=== PATIENT | female | born 1995 | race Two or more races ===

== ENCOUNTER 2017-09-27 02:14 | Emergency (ER) | payer OTHER ==
[2017-09-27 02:43] LABS: APPEARANCE,URINE CLEAR; BILIRUBIN,URINE NEGATIVE (NEGATIVE); GLUCOSE, URINE NEGATIVE (NEGATIVE); KETONES,URINE NEGATIVE (NEGATIVE); LEUKOCYTE ESTERASE,URINE NEGATIVE (NEGATIVE); NITRITE,URINE NEGATIVE (NEGATIVE); PROTEIN,URINE NEGATIVE (NEGATIVE); URINE SPECIFIC GRAVITY 1.001; UROBILINOGEN,URINE NEGATIVE mg/dL (<2.0)
[2017-09-27 02:54] LABS: ABSOLUTE BASOPHILS # (AUTO) 0.1 10^3/uL (0.0-0.2); ABSOLUTE EOSINOPHILS # (AUTO) 0.2 10^3/uL (0.0-0.6); ABSOLUTE LYMPHOCYTES (AUTO) 2.9 10^3/uL (0.5-4.7); ABSOLUTE MONOCYTES (AUTO) 0.4 10^3/uL (0.1-1.4); ABSOLUTE NEUT (AUTO) 4.5 10^3/uL (1.7-8.2); BASOPHILS % (AUTO) 0.8 % (0-2); EOSINOPHILS % (AUTO) 2.4 % (0-6); HEMATOCRIT 40.9 % (36.0-47.0); HGB HCT DIFFERENCE 1.1; LYMPHOCYTES % (AUTO) 35.9 % (13-45); MEAN CORPUSCULAR HGB CONC 34.2 g/dL (32.0-36.0); MEAN CORPUSCULAR VOLUME 91 fl (80-97); MONOCYTES % (AUTO) 5.4 % (3-13); RED BLOOD COUNT 4.51 10^6/uL (3.72-5.28); RED CELL DISTRIBUTION WIDTH 13.2 % (11.5-14.0); SEGMENTED NEUTROPHILS % (AUTO) 55.5 % (42-78); WHITE BLOOD COUNT 8.2 10^3/uL (4.0-10.5)
[2017-09-27 03:04] LABS: URINE BARBITURATES SCREEN NEGATIVE; URINE METHADONE SCREEN NEGATIVE; URINE OPIATES LOW NEGATIVE; URINE PHENCYCLIDINE SCREEN NEGATIVE
--- NOTE | 2017-09-27 03:10 | ER Document Report ---
ED General <ANTONYTRAY - Last Filed: 09/27/17 10:41> <SAMIRA NOGUEIRA - Last Filed: 09/27/17 10:51> <HILLARY DEAN - Last Filed: 09/28/17 03:35> - General Chief Complaint: Psych Problem Stated Complaint: SUICIDAL IDEATION Time Seen by Provider: 09/27/17 02:18 Notes: Patient is a 22-year-old female presents with complaint of thoughts of suicide. Patient says that ever since she got out of the on September 08 she has been very depressed. She says she has had a hard time adjusting. She is having a hard time getting a new job. Staying with a friend got in argument with a friend. She began drinking tonight and then thought about hurting herself. She has tried herself in the past. She denies actually doing anything to herself tonight. She says she does start to feel some better now that she is starting to sober up. She is supposed to be on medications for depression but says she has not been taking them. She has no other complaints at this time. (HILLARY DEAN) - Related Data Home Medications: Current Home Medications Sertraline HCl [Zoloft] 100 mg PO DAILY 09/27/17 [History] Trazodone HCl 100 mg PO QHS 09/27/17 [History] Past Medical History - Social History Smoking Status: Unknown if Ever Smoked Family History: Reviewed & Not Pertinent <ANTONYTRAY - Last Filed: 09/27/17 10:41> - Social History Smoking Status: Unknown if Ever Smoked Frequency of alcohol use: Occasional Drug Abuse: None Family History: Reviewed & Not Pertinent <HILLARY DEAN - Last Filed: 09/28/17 03:35> Review of Systems <TRAY ANTONY - Last Filed: 09/27/17 10:41> <SAMIRA NOGUEIRA - Last Filed: 09/27/17 10:51> <HILLARY DEAN - Last Filed: 09/28/17 03:35> - Review of Systems Notes: My Normal Review Basic REVIEW OF SYSTEMS: CONSTITUTIONAL : Denies fever, chills, or sweats. Denies recent illness. RESPIRATORY: Denies cough, cold, or chest congestion. Denies shortness of breath, difficulty breathing, or wheezing. GASTROINTESTINAL: Denies abdominal pain. Denies nausea, vomiting, or diarrhea. Denies constipation. Last BM: GENITOURINARY: Denies difficulty urinating, painful urination, burning, frequency, or blood in urine. MUSCULOSKELETAL: Denies neck or back pain or joint pain or swelling. SKIN: Denies rash or skin lesions. NEUROLOGICAL: Denies altered mental status or loss of consciousness. Denies headache. Denies weakness or paralysis or loss of use of either side. Denies problems with gait or speech. Denies sensory or motor loss. PSYCHIATRIC: Depression and suicidal thoughts. ALL OTHER SYSTEMS REVIEWED AND NEGATIVE. (HILLARY DEAN) Physical Exam <TRAY ANTONY - Last Filed: 09/27/17 10:41> <SAMIRA NOGUEIRA - Last Filed: 09/27/17 10:51> <HILLARY DEAN - Last Filed: 09/28/17 03:35> - Vital signs Vitals: Temp Pulse Resp BP Pulse Ox 97.9 F 89 18 105/65 97 09/27/17 02:30 09/27/17 02:30 09/27/17 02:30 09/27/17 02:30 09/27/17 02:30 - Notes Notes: General Appearance: Well nourished, alert, cooperative, no acute distress, no obvious discomfort. Vitals: reviewed, See vital signs table. Eyes: PERRL, EOMI, Conjuctiva clear Mouth: No decreasd moisture Lungs: No wheezing, No rales, No rhonci, No accessory muscle use, good air exchange bilaterally. Heart: Normal rate, Regular rythm, No murmur, no rub Abdomen: Normal BS, soft, No rigidity, No abdominal tenderness, No guarding, no rebound, no abdominal masses, no organomegaly Extremities: strength 5/5 in all extremities, good pulses in all extremities, no swelling or tenderness in the extremities, no edema. Skin: warm, dry, appropriate color, no rash Neuro: speech clear, oriented x 3, normal affect, responds appropriately to questions. (HILLARY DEAN) Course - Laboratory Result Diagrams: 09/27/17 02:42 09/27/17 02:42 <TRAY ANTONY - Last Filed: 09/27/17 10:41> - Laboratory Result Diagrams: 09/27/17 02:42 09/27/17 02:42 <SAMIRA NOGUEIRA - Last Filed: 09/27/17 10:51> - Laboratory Result Diagrams: 09/27/17 02:42 09/27/17 02:42 <HILLARY DEAN - Last Filed: 09/28/17 03:35> - Re-evaluation Re-evalutation: 09/27/17 05:15 Patient is medically stable for psychiatric evaluation due to her earlier thoughts of suicide. Patient currently says she is no longer suicidal but is still willing to speak with psychiatry. (HILLARY DEAN) - Vital Signs Vital signs: Temp Pulse Resp BP Pulse Ox 98.4 F 75 18 103/63 99 09/27/17 10:57 09/27/17 10:57 09/27/17 10:57 09/27/17 10:57 09/27/17 10:57 - Laboratory Laboratory results interpreted by me: 09/27/17 02:42 Sodium 150.3 H Chloride 111 H Salicylates < 1.0 L Acetaminophen < 10 L - EKG Interpretation by Me Additional EKG results interpreted by me: 09/27/17 03:10 EKG is reviewed and interpreted by me. EKG shows normal sinus rhythm with rate of [address] segment elevation or depression. No ischemic T-wave inversions. AL interval, QRS duration, QTc intervals are within normal range. No old EKG available for comparison. (HILLARY DEAN) Discharge <TRAY ANTONY - Last Filed: 09/27/17 10:41> <SAMIRA NOGUEIRA - Last Filed: 09/27/17 10:51> <HILLARY DEAN - Last Filed: 09/28/17 03:35> - Discharge Clinical Impression: Passive suicidal ideations Alcohol intoxication Qualifiers: Complication of substance-induced condition: uncomplicated Qualified Code(s): F10.920 - Alcohol use, unspecified with intoxication, uncomplicated Condition: Stable Disposition: HOME, SELF-CARE Additional Instructions: DEPRESSION: Your evaluation reveals that you have mental depression. While symptoms may be vague, they often include disturbance of sleep, fatigue, loss of appetite , and general loss of interest in life. While depression may be a side effect of drugs, or a reaction to a major change in your life, many cases have no known cause. If depression is acute, and related to a major loss in your life, you can expect it to clear completely with time. If you have been depressed a long time , are prone to repeated bouts of depression or low mood, or have been thinking of suicide, get help. Depression can be treated with anti-depressant medication and counselling. Long-term depression will often take a few weeks to clear, even with appropriate medication. Follow-up care is important. SUICIDAL IDEATION: Suicidal ideation is a common medical term for thoughts about suicide, which may be as detailed as a formulated plan, without the suicidal act itself. Although most people who undergo suicidal ideation do not commit suicide, some go on to make suicide attempts. The range of suicidal ideation varies greatly from fleeting to detailed planning, role playing, and unsuccessful attempts. While thoughts about suicide are common, most people do not carry out serious actions to commit suicide. Based upon your evaluation and discussion with you, we do not believe you are currently at risk to act upon your thoughts of suicide. You have agreed to return to the Emergency Department, at any time , if you feel inclined to act upon your suicidal thoughts. ACUTE ALCOHOL INTOXICATION and ALCOHOL ABUSE: Your evaluation revealed very high levels of alcohol. You can from drinking a large amount of alcohol rapidly! Further, there's the risk of falls , traffic accidents, and fights. A high portion (about 50 percent) of the serious injuries seen in hospital emergency rooms are caused by alcohol. Alcohol overdosage is usually due to an underlying emotional or psychiatric problem. You may benefit from counselling. If "binge" drinking is an ongoing problem for you, or if you drink ANY AMOUNT of alcohol EVERY day, you most likely have a tendency to alcoholism. You should avoid alcohol totally. We can refer you for treatment. Persons with alcohol problems are often also prone to other addictions -- you should discuss any use of medications or drugs with the doctor. You should be watched at home for the next several hours by someone who has not been drinking. Get extra fluids for the next 24 hours. Call the doctor if there is repeated vomiting, increasing headache, decreasing level of alertness, or any other worsening. FOLLOW-UP CARE: These follow-up with your outpatient mental health provider, the [facility], at your regular scheduled appointment on Friday. If you experience worsening or a significant change in your symptoms, notify the physician immediately or return to the Emergency Department at any time for re-evaluation. Referrals: [facility] [Provider Group] - 09/30/17
[2017-09-27 03:14] LABS: ALANINE AMINOTRANSFERASE 26 U/L (9-52); ALBUMIN 4.4 g/dL (3.5-5.0); ALCOHOL 233 mg/dL (NONE DETECTED); ALKALINE PHOSPHATASE 59 U/L (38-126); ANION GAP 16 (5-19); ASPARTATE AMINO TRANSFERASE 19 U/L (14-36); BILIRUBIN,DIRECT 0.4 mg/dL (0.0-0.4); BILIRUBIN,TOTAL 0.5 mg/dL (0.2-1.3); BLOOD UREA NITROGEN 12 mg/dL (7-20); CALCIUM 9.1 mg/dL (8.4-10.2); CARBON DIOXIDE 23 mmol/L (22-30); CHLORIDE 111 mmol/L (98-107); CREATINE KINASE 127 U/L (30-135); GLUCOSE 82 mg/dL (75-110); POTASSIUM 3.8 mmol/L (3.6-5.0); SODIUM 150.3 mmol/L (137-145); TOTAL PROTEIN 7.3 g/dL (6.3-8.2)
--- NOTE | 2017-09-27 10:10 | ER Document Report ---
Doctor's Note Notes: 09/27/17 10:09 Rounds: Chart reviewed and patient interviewed. Patient is being evaluated for suicidal thoughts last night. She says that she no longer has those thoughts today. She acknowledges drinking heavily yesterday. Her blood alcohol on admission was 233. Only other significant labs were her sodium and chloride were slightly elevated. Will encourage fluid intake. Vital signs are all normal. Patient appears to be medically stable for transfer or discharge. Octavio Matute MD
--- NOTE | 2017-09-27 10:36 | PSYCHOLOGICAL NOTE ---
Psych Note - Psych Note Psych Note: Patient is medically stable for psychiatric evaluation due to her earlier thoughts of suicide. Patient currently says she is no longer suicidal but is still willing to speak with psychiatry. Patient disclosed that she is feeling better but hung over. She continued to state that she no longer has thoughts of suicide. Patient states it has been a long time since she had thoughts of suicide while under the influence but is not the first time. 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 [facility]; patient was unable to attend her first 2 appointments. Patient disclosed that she had to go to work the first time she had an appointment the second time she had no ride. Patient continued disclosed that she felt is more important to go to work to make sure she still was able to have a roof of her head. Patient disclosed she knows she needs to go back to therapy because "it really worked when I was active-duty." Patient continued disclosed she weaned herself off of her antidepressants in July because she did not want to have to be reliant on medication. When asked on how often the patient drinks she states "only 1 or 2 times every few weeks." Patient's friend, Erika, disclosed that she was part of the team to assist the patient when she was active-duty. 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 She agrees to ensure the patient has no access to weapons or medications. Patient is alert and orientated to person, place, time and circumstance. Mood is euthymic with congruent affect. Patient denies suicidal and homicidal ideation. Patient denies auditory visual hallucinations. Delusions are absent and behaviors congruent with intact reality based presentation i.e. organized, linear, rational thinking. Eye contact was well-maintained. Conversational speech was within normal rate, tone and prosody. Intellectual abilities appear to be within the average range. Attention and concentration were good. Insight , judgment, impulse control are currently fair. 303.00 (F10.129) alcohol intoxication with use disorder; mild 309.9 (F43.8) adjustment disorder unspecified Impression\\plan: Patient is considered psychiatrically clear. Patient does not meet IVC criteria per [place] GS 122C. Patient denies suicidal and homicidal ideation reporting that she was under the influence. Patient has had this experience before while under the influence. Patient denies alcohol abuse stating that she only drinks 1 or 2 times every few weeks. Patient's toxicology indicates blood alcohol level of over 200. Patient is noncompliant as evidenced by missing first 2 appointments with the [facility] in weaning herself off of her psychiatric medications. Patient's friend Erika disclose she will be part of patient's discharge plan to ensure the patient does not have access to medications or weapons and follows through with her outpatient mental health treatment. Patient is recommended to [facility] at her previous scheduled appointment on Friday. Dr. Clark was consulted and the care and management of this patient; attending physician in agreement with augmentations and disposition.
[2017-09-27 11:05] VITALS: BP 103/63
--- NOTE | 2017-09-27 15:46 | EKG REPORT ---
SEVERITY:- NORMAL ECG - SINUS RHYTHM : Confirmed by: Isabel Vick 27-Sep-2017 15:45:44
== END 2017-09-27 11:05 | disposition home or self-care (01) ==
LOC: ER 02:14
DX: R45.851 Suicidal ideations (principal); F10.920 Alcohol use, unspecified with intoxication, uncomplicated; F32.9 Major depressive disorder, single episode, unspecified; Z79.899 Other long term (current) drug therapy
CPT/HCPCS: 36415; 80053; 80307; 81001; 82550; 84703; 85025; 93005; 93010; 99285

== ENCOUNTER 2017-12-27 03:32 | Emergency (ER) | payer OTHER ==
[2017-12-27] MEDS ORDERED: HALOPERIDOL LACTATE INJ 5 MG/1 ML VIAL IM ONE (04:28)
[2017-12-27] MEDS ORDERED: LORAZEPAM INJ 2 MG/1 ML VIAL IM ONE (04:28)
--- NOTE | 2017-12-27 04:29 | ER Document Report ---
ED General - General Chief Complaint: Suicidal Ideation Stated Complaint: SUICIDAL IDEATION Time Seen by Provider: 12/27/17 03:53 Notes: Patient is a 20-year-old female presents with complaint of suicidal ideations. She presents saying that she has a history of suicide attempts in the past and has been very depressed recently and has not been taking her depression medications. She says that she wants to commit suicide. She says that she did recently breakup with her boyfriend. She is also been very depressed since leaving the [employer]. She says she also had depression while she was in the [employer]. She has no family in area. TRAVEL OUTSIDE OF THE [place] IN LAST 30 DAYS: No Past Medical History - Social History Smoking Status: Unknown if Ever Smoked Chew tobacco use (# tins/day): No Frequency of alcohol use: Social Drug Abuse: None Family History: Reviewed & Not Pertinent Patient has suicidal ideation: Yes Patient has homicidal ideation: No Renal/ Medical History: Denies: Hx Peritoneal Dialysis Psychiatric Medical History: Reports: Hx Depression Review of Systems - Review of Systems Notes: My Normal Review Basic REVIEW OF SYSTEMS: CONSTITUTIONAL : Denies fever, chills, or sweats. Denies recent illness. EENT: Denies eye, ear, throat, or mouth pain or symptoms. Denies nasal or sinus congestion. CARDIOVASCULAR: Denies chest pain. RESPIRATORY: Denies cough, cold, or chest congestion. Denies shortness of breath, difficulty breathing, or wheezing. GASTROINTESTINAL: Denies abdominal pain. Denies nausea, vomiting, or diarrhea. Denies constipation. Last BM: MUSCULOSKELETAL: Denies neck or back pain or joint pain or swelling. SKIN: Denies rash or skin lesions. NEUROLOGICAL: Denies altered mental status or loss of consciousness. Denies headache. Denies weakness or paralysis or loss of use of either side. Denies problems with gait or speech. Denies sensory or motor loss. PSYCHIATRIC: Severe depression and suicidal ideation ALL OTHER SYSTEMS REVIEWED AND NEGATIVE. Physical Exam - Vital signs Vitals: Temp Pulse Resp BP Pulse Ox 98.3 F 95 20 118/78 100 12/27/17 04:30 12/27/17 04:30 12/27/17 04:30 12/27/17 04:30 12/27/17 04:30 - Notes Notes: General Appearance: Well nourished, alert, cooperative, no acute distress, no obvious discomfort. Vitals: reviewed, See vital signs table. Head: no swelling or tenderness to the head Eyes: PERRL, EOMI, Conjuctiva clear Mouth: No decreasd moisture Lungs: No wheezing, No rales, No rhonci, No accessory muscle use, good air exchange bilaterally. Heart: Normal rate, Regular rythm, No murmur, no rub Abdomen: Normal BS, soft, No rigidity, No abdominal tenderness, No guarding, no rebound, no abdominal masses, no organomegaly Extremities: strength 5/5 in all extremities, good pulses in all extremities, no swelling or tenderness in the extremities, no edema. Skin: warm, dry, appropriate color, no rash Neuro: speech clear, oriented x 3, normal affect, responds appropriately to questions. Psychiatric: Tearful and very upset emotionally. Repeatedly says that she wants to kill herself. Course - Re-evaluation Re-evalutation: 12/27/17 04:28 Patient refused to take off her wet clothes. I informed her that she has to change into the paper scrubs and take off those close. The hospital policy that anybody is here for suicidal ideations must changes these close and take away their personal close as to avoid them using them to hurt themselves. Patient says she does not care and she want to go for close. She asked if I will just let her leave so that she can kill herself. I informed her that I will not let her leave and I will not let her kill herself. Informed her that I am doing this to try to help her. IVC paperwork has been filled out. Patient will be given medication to sedate her so that we can get her changed and get her appropriate treatment. 12/27/17 07:08 She was given sedation medications still continue to fight the security guards. She was therefore restrained. 12/27/17 07:09 Patient's labs are still pending. Once labs are back and normal patient will be medically stable for psychiatric evaluation. - Vital Signs Vital signs: Temp Pulse Resp BP Pulse Ox 98.3 F 95 20 118/78 100 12/27/17 04:30 12/27/17 04:30 12/27/17 04:30 12/27/17 04:30 12/27/17 04:30
--- NOTE | 2017-12-27 09:52 | ER Document Report ---
Doctor's Note Notes: 12/27/17 09:52 Rounds: Chart reviewed and patient sleeping so difficult to interview. Patient is being evaluated for depression and suicidal ideation. She is not on any current medicines for depression, although she has been on medicines in the past. Vital signs are all normal. Lab studies have not been done, even though it has been nearly 6 hours since they were ordered. Patient appears to be medically stable for transfer or discharge. Octavio Matute MD
[2017-12-27 10:34] LABS: ABSOLUTE EOSINOPHILS # (AUTO) 0.3 10^3/uL (0.0-0.6); ABSOLUTE LYMPHOCYTES (AUTO) 2.3 10^3/uL (0.5-4.7); ABSOLUTE MONOCYTES (AUTO) 0.5 10^3/uL (0.1-1.4); BASOPHILS % (AUTO) 0.5 % (0-2); EOSINOPHILS % (AUTO) 3.7 % (0-6); HEMATOCRIT 36.7 % (36.0-47.0); HEMOGLOBIN 12.6 g/dL (12.0-15.5); LYMPHOCYTES % (AUTO) 32.5 % (13-45); MEAN CORPUSCULAR HEMOGLOBIN 30.9 pg (27.0-33.4); MEAN CORPUSCULAR HGB CONC 34.2 g/dL (32.0-36.0); MEAN CORPUSCULAR VOLUME 90 fl (80-97); MONOCYTES % (AUTO) 7.1 % (3-13); PLATELET COUNT 201 10^3/uL (150-450); RED BLOOD COUNT 4.07 10^6/uL (3.72-5.28); RED CELL DISTRIBUTION WIDTH 13.3 % (11.5-14.0); SEGMENTED NEUTROPHILS % (AUTO) 56.2 % (42-78); TOTAL CELLS COUNTED % (AUTO) 100 %; WHITE BLOOD COUNT 7.1 10^3/uL (4.0-10.5)
[2017-12-27 10:41] LABS: APPEARANCE,URINE SLIGHTLY-CLOUDY; BILIRUBIN,URINE NEGATIVE (NEGATIVE); COLOR,URINE YELLOW; GLUCOSE, URINE NEGATIVE (NEGATIVE); KETONES,URINE NEGATIVE (NEGATIVE); LEUKOCYTE ESTERASE,URINE NEGATIVE (NEGATIVE); NITRITE,URINE NEGATIVE (NEGATIVE); PROTEIN,URINE NEGATIVE (NEGATIVE); URINE SPECIFIC GRAVITY 1.006; UROBILINOGEN,URINE NEGATIVE mg/dL (<2.0)
[2017-12-27 10:53] LABS: ALANINE AMINOTRANSFERASE 25 U/L (9-52); ALCOHOL 111 mg/dL (NONE DETECTED); ALKALINE PHOSPHATASE 47 U/L (38-126); ANION GAP 12 (5-19); ASPARTATE AMINO TRANSFERASE 27 U/L (14-36); BILIRUBIN,DIRECT 0.4 mg/dL (0.0-0.4); BILIRUBIN,TOTAL 0.4 mg/dL (0.2-1.3); BLOOD UREA NITROGEN 10 mg/dL (7-20); CALCIUM 8.9 mg/dL (8.4-10.2); CARBON DIOXIDE 23 mmol/L (22-30); CHLORIDE 106 mmol/L (98-107); GLUCOSE 91 mg/dL (75-110); POTASSIUM 3.2 mmol/L (3.6-5.0); SODIUM 141.4 mmol/L (137-145); TOTAL PROTEIN 6.9 g/dL (6.3-8.2)
[2017-12-27 10:54] LABS: ACETAMINOPHEN < 10 ug/mL (10-30); SALICYLATE < 1.0 mg/dL (2.0-20.0)
[2017-12-27 10:59] LABS: URINE AMPHETAMINES SCREEN NEGATIVE; URINE BARBITURATES SCREEN NEGATIVE; URINE BENZODIAZEPINES SCREEN NEGATIVE; URINE COCAINE SCREEN NEGATIVE; URINE MARIJUANA (THC) SCREEN NEGATIVE; URINE METHADONE SCREEN NEGATIVE; URINE PHENCYCLIDINE SCREEN NEGATIVE
[2017-12-27] MEDS: FLUOXETINE HCL 20 MG CAPSULE PO SCH (17:21)
[2017-12-27] MEDS: OLANZAPINE 2.5 MG TABLET PO SCH (17:21)
--- NOTE | 2017-12-27 22:18 | EKG REPORT ---
SEVERITY:- BORDERLINE ECG - SINUS RHYTHM : Confirmed by: Isabel Vick 27-Dec-2017 22:17:13
--- NOTE | 2017-12-28 04:40 | PSYCHOLOGICAL NOTE ---
Psych Note - Psych Note Psych Note: Reason for Consult: IVC; suicidal ideation consent permissions: patient unable to engage in evaluation Patient is a 20-year-old female presents with complaint of suicidal ideations. She presents saying that she has a history of suicide attempts in the past and has been very depressed recently and has not been taking her depression medications. She says that she wants to commit suicide. She says that she did recently breakup with her boyfriend. She is also been very depressed since leaving the [facility]. She says she also had depression while she was in the [facility]. She has no family in area. Medication intervention was needed at 0446; patient has been unable to awake to engage in evaluation. Patient was seen by this clinician on 09/27/2017 where she disclosed that she does have thoughts of suicide while intoxicated but stated it had been a long time since that occurred. She disclosed she had been having a difficult time since getting out of active duty ([facility]) and [facility]. Patient disclosed she knows she needs to go back to therapy because "it really worked when I was active-duty." Patient reported she weaned herself off of her antidepressants in July because she did not want to have to be reliant on medication. When asked on how often the patient drinks she states "only 1 or 2 times every few weeks." Chart review conducted Attending evening nurse noted patient observed seated on the floor in front of the commode; patient has blue scrub pants placed over her wet muddy clothing; patient refuses to get up off the floor and tells staff not to touch her; with repeated encouragement and instructions, patient remains seated on the floor; patient has a urine cup with "very clear" appearing fluid in it; does not appear to be urine; sample will be discarded. patient eventually got up on her own and got onto the bed; patient continues to be resistant with ivc compliance and protocol/direction of staff to surrender her belongings. will make MD aware. patient resistant; patient attempting to bite security engineer; patient placed in 4 point restraints; medicated as ordered; patient complaint; patient offered her belt and her cellphone which was under the patient; patient is tearful and made aware once she is complaint, the restraints will be removed and her wet clothing can be stored for safe keeping and she will be clean and dry with clean clothing offered by this staff. Medication recommendations per [facility]'s contracted psychiatrist, MD Precious, are as follows: 1. Zyprexa 2.5 mg twice daily 2. Prozac 20 mg daily Diagnosis: 296.80 (F31.9) unspecified bipolar and related disorder Impression\\plan: Patient is recommended to continue under IVC. Patient disclosed suicidal ideation and has demonstrated difficulty in controlling her impulses. Patient has been seen by this clinician and it appears the patient's presentation is decompensating. Patient will be reevaluated. Dr. Clark was consulted and the care management this patient; attending physician in agreement with her conditions and disposition.
--- NOTE | 2017-12-28 09:18 | ER Document Report ---
Doctor's Note Notes: 12/28/17 09:16 Medical rounds: Chart reviewed and patient interviewed briefly. Vital signs are normal. Laboratory values are satisfactory, slight hypokalemia is noted. Patient states she is feeling better, has no specific somatic complaint. She is medically stable, awaiting recommendations from psych for placement or discharge.
[2017-12-28] MEDS: FLUOXETINE HCL 20 MG CAPSULE PO SCH (09:46)
[2017-12-28] MEDS: OLANZAPINE 2.5 MG TABLET PO SCH ×2 (09:46→18:04)
--- NOTE | 2017-12-28 16:37 | PSYCHOLOGICAL NOTE ---
Psych Note - Psych Note Psych Note: Reason for Consult: IVC; suicidal ideation Consent permissions: Parents Daniel and Bruna in [place] [phone] (she stated they could be made aware of plan of care for discharge) Patient is a 20 year old female in the ED on IVC for suicidal ideation. She identified she had been drinking alcohol last evening, had been trying to reach some friends but couldn't and so called . She reported she has had SI on and off for the past year. She described her moods as "normal and then sad." She identified when she is sad the SI thoughts come at varying degrees though they sounded as if more passive. She admitted she has been hospitalized for similar etiology here at [facility] as well as at [facility] (ED and [facility]). She stated she had been prescribed Zoloft, Trazodone and Melatonin previously. She identified she was in the [employer] and was honorably discharged June 2017 so has . She denied seeing a MH provider currently. She stated she has not been sleeping well for the past week and described going to sleep recruitment consultant hours for 30 minute increments. She denied current SI/HI. She stated she felt "okay" today. She did take medications administered to her last evening. She stated they did not make her feel bad. 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 She reported she lives with 3 other roommates (doesn't trust them entirely to make them part of discharge plan) and she noted she lacks transportation currently. Medication recommendations made by the [facility] psychiatric medical provider, Dr. Precious MD, include: same as yesterday 1. Zyprexa 2.5MG PO BID 2. Prozac 20MG PO QD Diagnosis: 296.80 (F31.9) Unspecified Bipolar and Related Disorder Impression\\Plan: Recommendation to maintain IVC given patient was just started on medication regimen yesterday, her ongoing SI for the past year, recent life style changes (honorable discharge from [facility] June 2017), and lack of sleep for a week per patient report. Will reassess tomorrow and if same demeanor and/or brighter will likely do plan of care for discharge. Consulted with Dr. Clark regarding the management and care of patient. ED Physician in agreement with recommendation.
--- NOTE | 2017-12-29 09:57 | ER Document Report ---
Doctor's Note Notes: 12/29/17 09:57 As the rounding physician for our psychiatric patients, I have reviewed the chart, vitals, lab work. Patient has been examined and noted to be stable. I am awaiting mental health in put.
[2017-12-29 14:41] VITALS: BP 124/67
--- NOTE | 2017-12-30 10:39 | PSYCHOLOGICAL NOTE ---
Psych Note - Psych Note Psych Note: Met with Patient who reported she was feeling much better after having her medication and getting good sleep. She reported she no longer feels suicidal and is glad she reached out for help. Patient reported [facility] and was referred to Counseling for outpatient therapy. Patient reported she has a good support system and feels she can continue to use it, but needs to prod herself to open up more. Patient was oriented to person, pace, time, and circumstance. Mood was pleasant and cooperative. Affect was mood congruent. She denied suicidal / homicidal ideation, intent or plan. She denied auditory / visual hallucinations and no delusions were noted. Thought processes were linear, logical, and organized. Conversational speech was within normal limits for rate, tone, and prosody. Intellectual abilities were estimated within the average range. Eye contact was well maintained. Attention and concentration was good. Insight, judgment, and impulse control was fair. Medication recommendations by Dr. Lang [facility] Psychiatrist are: 1. Zyprexa 2.5 mg twice per day 2. Prozac 20 mg daily Diagnoses: 1. Unspecified Bipolar Disorder Impression / Plan: Patient is psychiatrically clear and recommend for rescind. Patient denies suicidal / homicidal ideation, intent or plan. She stated the medication appears to be helping her and she is interested in following up outpatient for medication management and counseling. She reported a good support system. Patient agreed to engage her support system better than in the past. Patient provided resources and psychoeducation regarding community based resources including mobile crisis. ED Physician in agreement with recommendation and disposition.
== END 2017-12-29 14:42 | disposition home or self-care (01) ==
LOC: ER 03:32
DX: F32.9 Major depressive disorder, single episode, unspecified (principal); R45.851 Suicidal ideations; F31.9 Bipolar disorder, unspecified
CPT/HCPCS: 93005; 99285; 96372; 36415; 80307 ×4; 84703; 85025; 80053; 81001; 93010; J1630; J3490 ×2; J2060